=== PATIENT | female | born 1970 | race Two or more races ===

== ENCOUNTER 2016-10-22 00:04 | Emergency (ER) | payer OTHER ==
[~2016-10-22] VITALS: Ht 165.1 cm; Wt 72.6 kg
[2016-10-22] MEDS ORDERED: ONDANSETRON HCL 4 MG/2 ML VIAL IV ONE ×2 (01:00→08:00)
[2016-10-22] MEDS ORDERED: HYDROmorphone HCL 2 MG/ML VL IV ONE ×3 (01:00→08:00)
[2016-10-22] MEDS ORDERED: ETOMIDATE (2MG/ML) 20ML VIAL IV ONE (08:00)
[2016-10-22 09:53] VITALS: BP 129/83
== END 2016-10-22 10:08 | disposition short-term general hospital (02) ==
LOC: EDBD 00:04 → ER 00:09
DX: S82.831A Other fracture of upper and lower end of right fibula, initial encounter for closed fracture (principal); S82.101A Unspecified fracture of upper end of right tibia, initial encounter for closed fracture; W18.39XA Other fall on same level, initial encounter; Y93.89 Activity, other specified; Y92.89 Other specified places as the place of occurrence of the external cause; Y99.8 Other external cause status
CPT/HCPCS: 27780; 73552; 73560; 73590; 96374; 96375; 96376; 99285; J1170; J2405; 29505

== ENCOUNTER 2017-01-23 01:53 | Emergency (ER) | payer OTHER ==
[~2017-01-23] VITALS: Ht 175.3 cm; Wt 77.1 kg
[2017-01-23] MEDS ORDERED: SODIUM CHLORIDE 0.9% 500 ML IVB ONE (01:59)
[2017-01-23] MEDS ORDERED: LORazepam 2MG/ML-1ML VIAL IV ONE (02:00)
[2017-01-23 02:33] LABS: Basophils # (auto) 0.1 uL; Basophils % (auto) 0.5 % (0.0-2.0); CONDITION Y; Eosinophils # (auto) 0.1 uL; Eosinophils % (auto) 1.4 % (0.0-7.0); Hematocrit 41.7 % (36.0-46.0); Hemoglobin 14.1 g/dL (12.2-16.2); Lymphocytes # (auto) 2.8 uL; Lymphocytes % (auto) 29.2 % (10.0-50.0); Mean Corpuscular Hemoglobin 30.8 pg (28.0-32.0); Mean Corpuscular Hgb Conc. 33.9 g/dL (32.0-36.0); Mean Corpuscular Volume 90.9 fL (80.0-100.0); Mean Platelet Volume 9.2 fL (7.4-10.4); Monocytes # (auto) 0.6 uL; Monocytes % (auto) 6.2 % (0.0-12.0); Neutrophils # (auto) 5.9 uL; Neutrophils % (auto) 62.7 % (37.0-80.0); Platelet Count (auto) 365 10^3/uL (140-450); Red Cell Distribution Width 12.7 % (11.6-16.0); White Blood Cell 9.4 10^3/uL (4.4-10.8)
[2017-01-23 03:02] LABS: Albumin 3.7 g/dL (3.4-5.0); Anion Gap 9 (5-15); Aspartate Aminotransferase 18 U/L (15-37); BUN/Creatinine Ratio 13.3; Blood Urea Nitrogen 11 mg/dL (7-18); Carbon Dioxide 25 mmol/L (21-32); Chloride 107 mmol/L (98-107); GFR African American 94 mL/min; GFR Non-African American 78 mL/min; Glucose 103 mg/dL (74-106); Potassium 3.9 mmol/L (3.5-5.1); Sodium 141 mmol/L (136-145)
[2017-01-23 03:05] LABS: Alkaline Phosphatase 123 U/L (45-117); Bilirubin, Total 0.3 mg/dL (0.2-1.0); Total Protein 7.5 g/dL (6.4-8.2)
[2017-01-23 03:07] LABS: Urine Bilirubin Negative (Negative); Urine Blood Negative /uL (Negative); Urine Color Yellow (Yellow); Urine Glucose Normal (Normal); Urine Ketone Negative (Negative); Urine Mucus FEW (None Seen); Urine Nitrite Negative (Negative); Urine RBC <1 /hpf (0 - 4); Urine Squamous Epithelial Cell MOD /hpf (<5); Urine Urobilinogen Normal (Negative)
[2017-01-23] MEDS ORDERED: ALPRAZolam 0.25 MG TAB PO ONE (03:45)
[2017-01-23 05:00] VITALS: BP 129/77
== END 2017-01-23 05:30 | disposition home or self-care (01) ==
LOC: EDBD 01:53 → ER 01:53
DX: F41.9 Anxiety disorder, unspecified (principal); N39.0 Urinary tract infection, site not specified
CPT/HCPCS: 36415; 71010; 80053; 80307; 80320; 81001; 85025; 93005